=== PATIENT | male | born 1980 | race American Indian/Alaskan Native ===

== ENCOUNTER 2018-09-04 22:00 | Emergency (ER) | payer OTHER ==
[2018-09-04 22:54] LABS: Basophils % (Auto) 0.3 % (0.0-1.8); Eosinophils # (Auto) 0.1 K/mm3 (0.0-0.4); Eosinophils % (Auto) 0.4 % (0.0-4.3); Hematocrit 45.6 % (35.5-45.6); Hemoglobin 15.9 gm/dl (11.8-15.2); Lymphocytes # (Auto) 2.3 K/mm3 (1.2-5.4); Lymphocytes % (Auto) 16.6 % (13.4-35.0); Mean Corpuscular HGB Conc 35 % (32-34); Mean Corpuscular Volume 95 fl (84-94); Monocytes # (Auto) 1.2 K/mm3 (0.0-0.8); Monocytes % (Auto) 8.4 % (0.0-7.3); Platelet Count 208 K/mm3 (140-440); Red Blood Count 4.79 M/mm3 (3.65-5.03); Red Cell Distribution Width 14.3 % (13.2-15.2)
[2018-09-04 23:14] LABS: Alanine Aminotransferase 12 units/L (7-56); Albumin 4.4 g/dL (3.9-5); BUN/Creatinine Ratio 8; Blood Urea Nitrogen 8 mg/dL (9-20); Calcium 9.9 mg/dL (8.4-10.2); Hemolysis Index 7
[2018-09-04 23:56] LABS: Bilirubin,Urine NEG (Negative); Blood,Urine NEG (Negative); Color,Urine Yellow (Yellow); Mucus,Urine 1+ /HPF; Urobilinogen,Urine < 2.0 mg/dL (<2.0)
[2018-09-04 23:59] LABS: Bacteria,Urine 1+ /HPF (Negative)
[2018-09-05] MEDS ORDERED: NACL 0.9% 1000 ML 1,000 ML IV ONE (00:57)
[2018-09-05] MEDS ORDERED: MORPHINE IV ONE (00:57)
[2018-09-05] MEDS ORDERED: TORADOL IV ONE (00:57)
[2018-09-05] MEDS ORDERED: ZOFRAN IV ONE (00:57)
--- NOTE | 2018-09-05 01:47 | Cat Scan Report ---
PROCEDURE: CT ABDOMEN PELVIS W CON TECHNIQUE: Computerized axial tomography of the abdomen and pelvis was performed after the IV inject ion of iodinated nonionic contrast. CT DOSE LENGTH PRODUCT: 1058.7 mGycm HISTORY: RLQ pain with gaurding COMPARISONS: None . FINDINGS: Visualized lower thorax: No significant abnormality. Liver: Normal size and attenuation. There are multiple subcentimeter hypodensities in the liver which could be cysts and/or hemangiomas. Spleen: Normal size and attenuation. Gallbladder and biliary system: Normal. Pancreas: Normal. Adrenals: Normal. Kidneys: Normal. GI tract: There is diffuse mucosal thickening of the cecum and right colon suggesting acute colitis. There is no specific evidence of diverticulitis, obstruction or ischemic injury. The stomach and sma ll bowel are unremarkable. The appendix is not identified. . Lymph nodes and mesentery: There is reactive mesenteric lymphadenopathy.. Vasculature: Normal.. Bladder: Normal. Reproductive organs: Normal. Peritoneum: There is minimal ascites. There is no free. Musculoskeletal structures: No significant abnormality. IMPRESSION: There are multiple subcentimeter hypodensities in the liver which could be cysts and/or hemangiomas. There is diffuse mucosal thickening of the cecum and right colon suggesting acute colitis. There is n o specific evidence of diverticulitis, obstruction or ischemic injury. The stomach and small bowel are unremarkable. The appendix is not identified. . There is reactive mesenteric lymphadenopathy.. There is minimal ascites. There is no free. . This document is electronically signed by Panda Salazar MD., Sep 05 2018 01:45:23 AM ET
[2018-09-05] MEDS ORDERED: FLAGYL PO ONE (02:07)
[2018-09-05] MEDS ORDERED: LEVAQUIN PO ONE (02:07)
--- NOTE | 2018-09-05 02:40 | Emergency Department Report ---
ED Abdominal Pain HPI - General Chief Complaint: Abdominal Pain Stated Complaint: ABDOMINAL PAIN LOWER RIGHT/NAUSEA Time Seen by Provider: 09/05/18 00:56 Source: patient Mode of arrival: Ambulatory Limitations: No Limitations - History of Present Illness Initial Comments: Patient is a 38-year-old male who is presenting with 3 days of right lower quadrant pain. Patient states he also has nausea and diarrhea but denies any vomiting. Patient states that his last meal was at [employer] and his symptoms started after eating the meal several hours afterwards. Patient denies any fevers chills but has felt some sluggishness. Because of the amount of diarrhea the patient has had he states when he wipes now sees a little bit of blood on the tissue. He denies any blood filling up the toilet. - Related Data Previous Rx's Medication Instructions Recorded Last Taken Type Dicyclomine [Bentyl] 20 mg PO QID #10 tablet 09/05/18 Unknown Rx HYDROcodone/ACETAMINOPHEN 1 each PO Q6HR PRN #15 tablet 09/05/18 Unknown Rx [Hydrocodone-Acetamin 5-325 mg] Ibuprofen [Ibu] 600 mg PO Q6HR PRN #20 tablet 09/05/18 Unknown Rx Ondansetron [Zofran Odt] 4 mg PO Q8HR #10 tab.rapdis 09/05/18 Unknown Rx levoFLOXacin [Levaquin TAB] 500 mg PO QDAY #7 tablet 09/05/18 Unknown Rx metroNIDAZOLE [Flagyl] 500 mg PO Q8HR #20 tab 09/05/18 Unknown Rx Allergies Allergy/AdvReac Type Severity Reaction Status Date / Time No Known Allergies Allergy Unverified 09/04/18 22:19 ED Review of Systems ROS: Stated complaint: ABDOMINAL PAIN LOWER RIGHT/NAUSEA Other details as noted in HPI Comment: All other systems reviewed and negative ED Past Medical Hx - Past Medical History Additional medical history: herniated discs - Surgical History Past Surgical History?: No - Social History Smoking Status: Current Every Day Smoker Substance Use Type: Alcohol - Medications Home Medications: Home Medications Medication Instructions Recorded Confirmed Last Taken Type Dicyclomine [Bentyl] 20 mg PO QID #10 tablet 09/05/18 Unknown Rx HYDROcodone/ACETAMINOPHEN 1 each PO Q6HR PRN #15 tablet 09/05/18 Unknown Rx [Hydrocodone-Acetamin 5-325 mg] Ibuprofen [Ibu] 600 mg PO Q6HR PRN #20 tablet 09/05/18 Unknown Rx Ondansetron [Zofran Odt] 4 mg PO Q8HR #10 tab.rapdis 09/05/18 Unknown Rx levoFLOXacin [Levaquin TAB] 500 mg PO QDAY #7 tablet 09/05/18 Unknown Rx metroNIDAZOLE [Flagyl] 500 mg PO Q8HR #20 tab 09/05/18 Unknown Rx ED Physical Exam - General Limitations: No Limitations General appearance: alert, in no apparent distress - Head Head exam: Present: atraumatic, normocephalic - Eye Eye exam: Present: normal appearance - ENT ENT exam: Present: mucous membranes moist - Neck Neck exam: Present: normal inspection - Respiratory Respiratory exam: Present: normal lung sounds bilaterally. Absent: respiratory distress, wheezes, rales, rhonchi - Cardiovascular Cardiovascular Exam: Present: regular rate, normal rhythm, normal heart sounds. Absent: systolic murmur, diastolic murmur, rubs, gallop - GI/Abdominal GI/Abdominal exam: Present: soft, tenderness, guarding (right lower quadrant), normal bowel sounds. Absent: distended, rebound, rigid - Rectal Rectal exam: Present: deferred - Extremities Exam Extremities exam: Present: normal inspection - Back Exam Back exam: Present: normal inspection - Neurological Exam Neurological exam: Present: alert, oriented X3 - Psychiatric Psychiatric exam: Present: normal affect, normal mood - Skin Skin exam: Present: warm, dry, intact, normal color. Absent: rash ED Course Vital Signs 09/04/18 09/04/18 22:05 22:13 Temperature 98.8 F 98.8 F Pulse Rate 97 H 96 H Respiratory 18 18 Rate Blood Pressure 145/97 145/97 O2 Sat by Pulse 99 99 Oximetry ED Medical Decision Making - Lab Data Result diagrams: 09/04/18 22:32 09/04/18 22:32 Lab Results 09/04/18 09/04/18 09/04/18 Range/Units 22:32 22:32 23:05 WBC 13.8 H (4.5-11.0) K/mm3 RBC 4.79 (3.65-5.03) M/mm3 Hgb 15.9 H (11.8-15.2) gm/dl Hct 45.6 (35.5-45.6) % MCV 95 H (84-94) fl MCH 33 H (28-32) pg MCHC 35 H (32-34) % RDW 14.3 (13.2-15.2) % Plt Count 208 (140-440) K/mm3 Lymph % (Auto) 16.6 (13.4-35.0) % Mckenzie % (Auto) 8.4 H (0.0-7.3) % Eos % (Auto) 0.4 (0.0-4.3) % Baso % (Auto) 0.3 (0.0-1.8) % Lymph # 2.3 (1.2-5.4) K/mm3 Mckenzie # 1.2 H (0.0-0.8) K/mm3 Eos # 0.1 (0.0-0.4) K/mm3 Baso # 0.0 (0.0-0.1) K/mm3 Seg Neutrophils % 74.3 H (40.0-70.0) % Seg Neutrophils # 10.3 H (1.8-7.7) K/mm3 Sodium 135 L (137-145) mmol/L Potassium 4.2 (3.6-5.0) mmol/L Chloride 93.4 L (98-107) mmol/L Carbon Dioxide 25 (22-30) mmol/L Anion Gap 21 mmol/L BUN 8 L (9-20) mg/dL Creatinine 1.0 (0.8-1.5) mg/dL Estimated GFR > 60 ml/min BUN/Creatinine Ratio 8 % Glucose 100 (75-100) mg/dL Calcium 9.9 (8.4-10.2) mg/dL Total Bilirubin 1.20 (0.1-1.2) mg/dL AST 18 (5-40) units/L ALT 12 (7-56) units/L Alkaline Phosphatase 60 (35-129) units/L Total Protein 8.0 (6.3-8.2) g/dL Albumin 4.4 (3.9-5) g/dL Albumin/Globulin Ratio 1.2 % Lipase 21 (13-60) units/L Urine Color Yellow (Yellow) Urine Turbidity Slightly-cloudy (Clear) Urine pH 6.0 (5.0-7.0) Ur Specific Drury 1.018 (1.003-1.030) Urine Protein 30 mg/dl (Negative) mg/dL Urine Glucose (UA) Neg (Negative) mg/dL Urine Ketones 80 (Negative) mg/dL Urine Blood Neg (Negative) Urine Nitrite Neg (Negative) Urine Bilirubin Neg (Negative) Urine Urobilinogen < 2.0 (<2.0) mg/dL Ur Leukocyte Esterase Sm (Negative) Urine WBC (Auto) 25.0 H (0.0-6.0) /HPF Urine RBC (Auto) 4.0 (0.0-6.0) /HPF U Epithel Cells (Auto) < 1.0 (0-13.0) /HPF Urine Bacteria (Auto) 1+ (Negative) /HPF Urine Mucus 1+ /HPF - Radiology Data There is diffuse mucosal thickening of the cecum and right colon suggestive of acute cholecystitis. There is no significant evidence of diverticulitis obstruction or ischemic injury. There is also reactive mesenteric lymphadenopat hy. - Medical Decision Making Patient was given IV hydration and maintenance for symptomatic relief. Patient is not vomiting and do believe is a good candidate for outpatient therapy. Patient started on Levaquin as well as Flagyl and meds for symptomatic relief. Critical care attestation.: If time is entered above; I have spent that time in minutes in the direct care of this critically ill patient, excluding procedure time. ED Disposition Clinical Impression: Acute colitis Disposition: DC-01 TO HOME OR SELFCARE Is pt being admited?: No Does the pt Need Aspirin: No Condition: Stable Instructions: Infectious Colitis (ED) Referrals: YAW TREJO MD [Primary Care Provider] - 3-5 Days Time of Disposition: 02:40
[2018-09-05] MEDS ORDERED: MORPHINE ONE (03:07)
[2018-09-05] MEDS ORDERED: TORADOL ONE (03:08)
[2018-09-05] MEDS ORDERED: ZOFRAN ONE (03:08)
[2018-09-05 03:13] VITALS: BP 126/87
== END 2018-09-05 04:56 | disposition home or self-care (01) ==
LOC: ED 22:00
DX: K52.9 Noninfective gastroenteritis and colitis, unspecified (principal)
CPT/HCPCS: 36415; 74177; 80053; 81001; 83690; 85025; 96361; 96374; 96375; 99284; J1885; J2270; J2405; J7030; Q9967